=== PATIENT | male | born 1975 | race African-American/Black ===

== ENCOUNTER 2019-02-27 00:46 | Inpatient (IN) | payer OTHER ==
[2019-02-27] VITALS (13 sets, daily range): BP systolic 91–139; BP diastolic 50–84; PULSE 88–139; RESP 18–67; Ht 188 cm; Wt 91.1 kg
[~2019-02-27] VITALS: Ht 188 cm; Wt 91.1 kg
[~2019-02-27 00:46] MED LIST: CHLO25CA9 PO; FOL8 PO; PANT40TA4 PO; THIA50TA7 PO
[2019-02-27] MEDS ORDERED: ACETAMINOPHEN 325 MG TAB PO PRN ×2 (04:30→10:30)
--- NOTE | 2019-02-27 07:06 | HP ---
Date/Time of Note Date/Time of Note DATE: 02/27/19 TIME: 06:59 Assessment/Plan VTE Prophylaxis Pharmacological prophylaxis: heparin Lines/Catheters IV Catheter Type (from Nrs): Saline Lock Assessment/Plan Assessment/Plan 1. Abdominal pain and vomiting, likely secondary to alcoholic gastritis -CT at the outside facility only shows gallbladder sludge and inguinal hernia -PPI -Pain management 2. Probable hematemesis -Patient had multiple vomiting and toward the end it became slightly bloody. This could just be from retching. -Guaiac was negative at the outside facility and hemoglobin 13.3 -PPI -Given history of alcohol abuse, GI consult 3. Alcohol abuse: Monitor for withdrawal. Last drink was yesterday -IV fluid alternating with banana bag -Librium, as needed Ativan 4. Presumed acute renal insufficiency: Likely volume depletion from vomiting -IV fluid for now 5. Leukocytosis: WBC was 14 at the outside facility: -Monitor for now HPI/ROS Admit Date/Time Admit Date/Time Feb 27, 2019 at 03:01 Hx of Present Illness Patient is a 43-year-old male with a history of alcohol abuse, cirrhosis who initially presented to [facility] complaining of abdom inal pain and vomiting. Patient's last drink was yesterday. He has had multiple vomiting episodes and it toward the end of started becoming slightly bloody. He also complains of having had chest pain after he vomited multiple times. Denied a dark stool or BRBPR. He had a white count of 14,000, hemoglobin 13.3, platelet 224, INR 1. Creatinine was found to be 1.6. Liver chemistries and lipase WNL. Troponin was negative. CT shows gallbladder sludge and inguinal hernia. Guaiac at the outside facility was negative. Patient was transferred to [facility] for insurance reason. PMH/Family/Social Past Medical History Past Surgical Hx: other (see HPI) Family History Significant Family History: other (see HPI) Social History Alcohol Use: see history Smoking Status: see history Drug Use: see history Exam Constitutional: other (No acute Distress) Head: normocephalic, atraumatic Eyes: PERRL Respiratory: normal air movement Cardiovascular: nl pulses Gastrointestinal: soft Extremities: normal pulses Medications Current Medications Acetaminophen (Tylenol Tab) 650 mg Q6H PRN PO MILD PAIN(1-3)OR ELEVATED TEMP Last administered on 02/27/19at 05:09; Admin Dose 650 MG; Start 02/27/19 at 04:30 Coded Allergies: No Known Allergy (Unverified , 02/27/19) pt verbalixed Social History Smoking Status: Former smoker Exam/Review of Systems Vital Signs Vitals Vital Signs Date Temp Pulse Resp B/P (MAP) Pulse Ox O2 O2 Flow FiO2 Time Delivery Rate 02/27/19 99.8 05:54 02/27/19 120 20 134/81 95 Room Air 03:22 (98) MITCHEL GONZALEZ MD Feb 27, 2019 07:06
--- NOTE | 2019-02-27 10:17 | PN ---
Date/Time of Note Date/Time of Note DATE: 02/27/19 TIME: 10:17 Assessment/Plan VTE Prophylaxis SCD applied (from Nsg): Yes Pharmacological prophylaxis: NA/contraindicated Pharm contraindication: liver dx Lines/Catheters IV Catheter Type (from Nrsg): Saline Lock Assessment/Plan Hospital Course SUBJECTIVE: Lying in bed, disoriented to place, time and situation. Tremulous. OBJECTIVE: Vital signs-see below PHYSICAL EXAM: Constitutional: Disheveled male, who is tremulous, having low-grade fevers HEENT: Head atraumatic and normocephalic. Eyes: Extraocular muscles intact. Anicteric sclerae. Pupils equal bilaterally, reactive to light. NECK: Supple without lymph node. CHEST: Clear and good breath sounds equally. No wheezing. No rhonchi. HEART: S1, S2. Regular rate and rhythm. ABDOMEN: Soft/non tender with no rebound tenderness. Bowel sounds were present. EXTREMITIES: No cyanosis, clubbing or edema. NEUROLOGIC: Alert to self, disoriented to time/place/situation. Tremulous. No focal deficit. No sensory deficit. PSYCHOSOCIAL: No signs of depression. INTEGUMENTARY: No open wounds. ASSESSMENT AND PLAN: 43-year-old male with alcoholism, liver failure, homelessness, transferred from [facility] where he was brought by paramedics with nausea and multiple episodes of vomiting which then became somewhat blood-tinged with abdominal pain.... Abd pain/N/Vomiting, improved -Question hematemesis, noted patient received 325 mg aspirin Enroute.. -GI consult for EGD evaluation to rule out esophageal varices vs acute alcoholic gastritis. -Empiric PPI -N.p.o., IV fluids Alcohol withdrawal syndrome -Banana bag, IV fluids, Librium/Ativan tapering doses -Cessation advised -SW assistance SIRS (leukocytosis+fevers) -Reactive versus infectious. Outside CT negative for any acute intra-abdominal inflammation.UA clear. - obtain cultures and treat accordingly. Acute kidney injury, CR=1.6 ([facility] records) -IV fluids, monitor renal function. 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 Follow-up GI recommendations. Patient was seen in collaboration with Dr. Dewitt. Results 24hrs Laboratory Tests Test 02/27/19 04:45 Urine Color YELLOW Urine Clarity CLEAR Urine pH 5.0 Urine Specific [place] 1.018 Urine Ketones NEGATIVE Urine Nitrite NEGATIVE Urine Bilirubin NEGATIVE Urine Urobilinogen NEGATIVE Urine Leukocyte Esterase NEGATIVE Urine Microscopic RBC 1 Urine Microscopic WBC 0 Urine Hemoglobin 1+ H Urine Glucose NEGATIVE Urine Total Protein 2+ H Exam/Review of Systems Exam Vitals Vital Signs Date Temp Pulse Resp B/P (MAP) Pulse Ox O2 O2 Flow FiO2 Time Delivery Rate 02/27/19 100.4 104 20 132/68 94 Room Air 07:36 (89) Results Results 24hrs Laboratory Tests Test 02/27/19 04:45 Urine Color YELLOW Urine Clarity CLEAR Urine pH 5.0 Urine Specific [place] 1.018 Urine Ketones NEGATIVE Urine Nitrite NEGATIVE Urine Bilirubin NEGATIVE Urine Urobilinogen NEGATIVE Urine Leukocyte Esterase NEGATIVE Urine Microscopic RBC 1 Urine Microscopic WBC 0 Urine Hemoglobin 1+ H Urine Glucose NEGATIVE Urine Total Protein 2+ H Medications Medication Current Medications Acetaminophen (Tylenol Tab) 650 mg Q6H PRN PO MILD PAIN(1-3)OR ELEVATED TEMP Last administered on 02/27/19at 05:09; Admin Dose 650 MG; Start 02/27/19 at 04:30 JASPER MENSAH NP Feb 27, 2019 10:17
[2019-02-27] MEDS ORDERED: NACL 0.9% 3 ML SYG IV SCH (10:30)
[2019-02-27] MEDS ORDERED: LORAZEPAM 2 MG INJ IV PRN (10:30)
[2019-02-27] MEDS ORDERED: ONDANSETRON 4 MG INJ IV PRN (10:30)
[2019-02-27] MEDS: SOD CHLORIDE 0.9% 1,000 ML IV SCH ×2 (11:11→19:10)
[2019-02-27] MEDS: MULTIVITAMINS 10 ML, THIAMINE 100 MG, FOLIC ACID 1 MG in SOD CHLORIDE 0.9% 1,000 ML IVPB SCH (11:54)
[2019-02-27] MEDS: PANTOPRAZOLE IV 80 MG in SOD CHLORIDE 0.9% 100 ML IV SCH ×2 (11:55→21:13)
[2019-02-27] MEDS: CHLORDIAZEPOXIDE 25 MG CAP PO SCH ×2 (12:25→21:10)
--- NOTE | 2019-02-27 14:36 | CONS ---
Assessment/Plan Assessment/Plan Hospital Course (Demo Recall) Summary Assessment and Plan: Assessment: Epigastric pain with reported hematemesis -Sabrina-Richardson tear versus hemorrhagic gastritis versus other Alcohol abuse, last drink 2 days ago Transaminitis, mild (AST>ALT)- DF based on outside labs- less than 32- therefore methylprednisolone therapy is not indicated Leukocytosis Hepatic steatosis - on outside imaging HTN History of schizophrenia Plan: Continue PPI gtt Monitor labs EGD today CBC, CMP, INR in am Endoscopy - risks/benefits/alternatives/indications of procedure and s edation/anesthesia discussed with patient who states understanding and gives informed consent to proceed. Treat alcoholic withdrawal symptoms Patient seen in collaboration with Dr. Torres CC: CLAIRE TORRES MD ; Consultation Date/Type/Reason Admit Date/Time Feb 27, 2019 at 03:01 Date of Consultation: Feb 27, 2019 Type of Consult GI Reason for Consultation Epigastric pain Reported hematemesis Date/Time of Note DATE: 02/27/19 TIME: 14:01 Hx of Present Illness This is a 43-year-old male with past medical history of alcohol abuse drinking 5 to 6 24-ounce beers per day since the age of 21, schizophrenia, hypertension presented to an outside facility with complaints of epigastric pain and persistent nausea and vomiting with subsequent hematemesis reported chest pain outside facility chest x-ray was completed showing no acute disease found. Additionally a CT abdomen pelvis without contrast shows hepatic steatosis, distended gallbladder containing dense material. Consider sludge. No definitive cholelithiasis or cholecystitis. Pancreas and kidneys are unremarkable. No obstructive uropathy. No appendicitis, colitis, diverticulitis, or bowel obstruction. No free air or free fluid. Small fat- containing inguinal hernias. Overall no acute or inflammatory disease or bowel obstruction. Additionally labs were obtained WBC revealed 14.0, hemoglobin 13.3, hematocrit 38.9, MCV 94.3, MCH 32.3, platelet 224, INR 1.0, BUN is 11, creatinine is 1.6, and troponin is less than 0.02. It was transferred to [facility] for insurance reasons. At time evaluation patient continues tingling of epigastric pain no further episodes of hematemesis noted no melena noted review is guaiac was negative. Patient states he has never had an upper endoscopy he does complain of epigastric pain worse with palpation he is currently n.p.o. states he has been so for the past 2 days. Additionally his last alcoholic beverage was 2 days ago. Review of Systems: A 12 system, review was conducted and is negative except as noted in the HPI or here. Past Medical History Medications Current Medications Sodium Chloride 1,000 ml @ 125 mls/hr Q8H IV Last administered on 02/27/19at 11:11; Admin Dose 125 MLS/HR; Start 02/27/19 at 10:17 IV Flush (NS 3 ml) 3 ml PER PROTOCOL IV ; Start 02/27/19 at 10:30 Ondansetron HCl (Zofran Inj) 4 mg Q6H PRN IV NAUSEA/VOMITING; Start 02/27/19 at 10:30 Acetaminophen (Tylenol Tab) 650 mg Q8H PRN PO .PAIN 1-3 OR TEMP; Start 02/27/19 at 10:30 Pantoprazole 80 mg/Sodium Chloride 100 ml @ 10 mls/hr Q10H IV Last administered on 02/27/19at 11:55; Admin Dose 10 MLS/HR; Start 02/27/19 at 12:00 Chlordiazepoxide (Librium) 75 mg TID PO Last administered on 02/27/19at 12:25; Admin Dose 75 MG; Start 02/27/19 at 13:00 Lorazepam (Ativan) 1 mg Q2H PRN IV etoh seizures/agitation; Start 02/27/19 at 10:30 Multivitamins 10 ml/Thiamine HCl 100 mg/Folic Acid 1 mg/Sodium Chloride 1,011.2 ml @ 125 mls/ hr DAILY@09 IVPB Last administered on 02/27/19at 11:54; Admin Dose 125 MLS/HR; Start 02/27/19 at 12:00 Allergies: Coded Allergies: No Known Allergy (Unverified , 02/27/19) pt verbalixed Social History Smoking Status: Former smoker Exam/Review of Systems Exam Vitals Vital Signs Date Temp Pulse Resp B/P (MAP) Pulse Ox O2 O2 Flow FiO2 Time Delivery Rate 02/27/19 100.1 103 20 121/67 97 Room Air 11:04 (85) Exam PHYSICAL EXAMINATION: GENERAL: Alert & oriented x 3, facial edema SKIN: No lesions HEAD: Normocephalic, atraumatic, no tenderness. EYES: Pupils equal reactive to light and accommodation, no discharge. EARS/NOSE AND THROAT: Ears normal, nose normal, oropharynx normal, oral membranes well hydrated without lesions. NECK: Supple, no masses, thyroid normal, JVP within normal limits, carotids normal without bruits. CHEST: Inspection within normal limits. CARDIOVASCULAR: Heart: Regular rate and rhythm, RESPIRATORY: Diminished GASTROINTESTINAL AND LIVER: Abdomen: Soft, non tenderness, non-distended, no hernias, no masses, no organomegaly, no ascites, no guarding, no rebound tenderness, normoactive bowel sounds. Rectal: Deferred. Results Results 24hrs Laboratory Tests Test 02/27/19 04:45 Urine Color YELLOW Urine Clarity CLEAR Urine pH 5.0 Urine Specific [place] 1.018 Urine Ketones NEGATIVE Urine Nitrite NEGATIVE Urine Bilirubin NEGATIVE Urine Urobilinogen NEGATIVE Urine Leukocyte Esterase NEGATIVE Urine Microscopic RBC 1 Urine Microscopic WBC 0 Urine Hemoglobin 1+ H Urine Glucose NEGATIVE Urine Total Protein 2+ H Medications Medication Current Medications Sodium Chloride 1,000 ml @ 125 mls/hr Q8H IV Last administered on 02/27/19at 11:11; Admin Dose 125 MLS/HR; Start 02/27/19 at 10:17 IV Flush (NS 3 ml) 3 ml PER PROTOCOL IV ; Start 02/27/19 at 10:30 Ondansetron HCl (Zofran Inj) 4 mg Q6H PRN IV NAUSEA/VOMITING; Start 02/27/19 at 10:30 Acetaminophen (Tylenol Tab) 650 mg Q8H PRN PO .PAIN 1-3 OR TEMP; Start 02/27/19 at 10:30 Pantoprazole 80 mg/Sodium Chloride 100 ml @ 10 mls/hr Q10H IV Last administered on 02/27/19at 11:55; Admin Dose 10 MLS/HR; Start 02/27/19 at 12:00 Chlordiazepoxide (Librium) 75 mg TID PO Last administered on 02/27/19at 12:25; Admin Dose 75 MG; Start 02/27/19 at 13:00 Lorazepam (Ativan) 1 mg Q2H PRN IV etoh seizures/agitation; Start 02/27/19 at 10 :30 Multivitamins 10 ml/Thiamine HCl 100 mg/Folic Acid 1 mg/Sodium Chloride 1,011.2 ml @ 125 mls/ hr DAILY@09 IVPB Last administered on 02/27/19at 11:54; Admin Dose 125 MLS/HR; Start 02/27/19 at 12:00 JEISON BLANDON Feb 27, 2019 14:13
[2019-02-27] MEDS ORDERED: LIDOCAINE 2% (SDV) 5 ML INJ ONE (15:29)
[2019-02-27] MEDS ORDERED: PROPOFOL 40 ML ONE (15:29)
--- NOTE | 2019-02-27 15:34 | PREAC ---
Date/Time of Note Date/Time of Note DATE: 02/27/19 TIME: 15:32 Anesthesia Eval and Record Evaluation Time Pre-Procedure Interview DATE: 02/27/19 TIME: 15:32 Age 43 Sex male NPO: 8 hrs Preoperative diagnosis Upper GI bleed Planned procedure EGD Past Medical History Past Medical History: Includes GI: Morbid obesity Heme: Anemia Surgery & Anesthesia Issues No known issue Meds Anticoagulation: No Beta Erica within 24 hr: No Reason Beta Erica not given: Pt. not on B-Erica Current Medications Sodium Chloride 1,000 ml @ 125 mls/hr Q8H IV Last administered on 02/27/19at 11:11; Admin Dose 125 MLS/HR; Start 02/27/19 at 10:17 IV Flush (NS 3 ml) 3 ml PER PROTOCOL IV ; Start 02/27/19 at 10:30 Ondansetron HCl (Zofran Inj) 4 mg Q6H PRN IV NAUSEA/VOMITING; Start 02/27/19 at 10:30 Acetaminophen (Tylenol Tab) 650 mg Q8H PRN PO .PAIN 1-3 OR TEMP; Start 02/27/19 at 10:30 Pantoprazole 80 mg/Sodium Chloride 100 ml @ 10 mls/hr Q10H IV Last administered on 02/27/19at 11:55; Admin Dose 10 MLS/HR; Start 02/27/19 at 12:00 Chlordiazepoxide (Librium) 75 mg TID PO Last administered on 02/27/19at 12:25; Admin Dose 75 MG; Start 02/27/19 at 13:00 Lorazepam (Ativan) 1 mg Q2H PRN IV etoh seizures/agitation; Start 02/27/19 at 10:30 Multivitamins 10 ml/Thiamine HCl 100 mg/Folic Acid 1 mg/Sodium Chloride 1,011.2 ml @ 125 mls/ hr DAILY@09 IVPB Last administered on 02/27/19at 11:54; Admin Dose 125 MLS/HR; Start 02/27/19 at 12:00 Meds reviewed: Yes Allergies Coded Allergies: No Known Allergy (Unverified , 02/27/19) pt verbalixed Allergies Reviewed: Yes Labs/Studies Labs Reviewed: Reviewed by anesthesiologist test: N/A Studies: ECG Pre-procedure Exam Last vitals Vital Signs Date Temp Pulse Resp B/P (MAP) Pulse Ox O2 O2 Flow FiO2 Time Delivery Rate 02/27/19 98.5 94 20 118/66 96 Room Air 14:45 (83) Airway: Adequate mouth opening, Adequate thyromental dist Mallampati: Mallampati III Teeth: Normal Lung: Normal Heart: Normal ASA Physical Status ASA physical status: 3 Emergency: None Planned Anesthetic General/MAC: MAC Planned Pain Management Parenteral pain med Pre-operative Attestations Prior to commencing anesthesia and surgery, the patient was re-evaluated, there was verification of: *The patient's identity *The results of appropriate recent lab work and preoperative vital signs *The above evaluation not changing prior to induction *Anesthetic plan, risk benefits, alternative and complications discussed with patient/family; questions answered; patient/family understands, accepts and wishes to proceed. PEDRO NIELSON MD Feb 27, 2019 15:34
--- NOTE | 2019-02-27 16:07 | PAC ---
Date/Time of Note Date/Time of Note DATE: 02/27/19 TIME: 16:07 Post-Anesthesia Notes Post-Anesthesia Note Last documented vital signs Vital Signs Date Temp Pulse Resp B/P (MAP) Pulse Ox O2 O2 Flow FiO2 Time Delivery Rate 02/27/19 98.5 94 20 118/66 96 Room Air 14:45 (83) Activity: WNL Respiratory function: WNL Cardiovascular function: WNL Mental status: Baseline Pain reasonably controlled: Yes Hydration appropriate: Yes Nausea/Vomiting absent: Yes Comments BP:112/67, P:78, Spo2:100%, T:98,8 PEDRO NIELSON MD Feb 27, 2019 16:07
[2019-02-28] VITALS (7 sets, daily range): BP systolic 117–154; BP diastolic 61–87; PULSE 79–94; RESP 18–19
[2019-02-28] MEDS: SOD CHLORIDE 0.9% 1,000 ML IV SCH ×3 (01:56→18:17)
[2019-02-28] MEDS: CHLORDIAZEPOXIDE 25 MG CAP PO SCH ×3 (09:15→21:23)
[2019-02-28] MEDS: MULTIVITAMINS 10 ML, THIAMINE 100 MG, FOLIC ACID 1 MG in SOD CHLORIDE 0.9% 1,000 ML IVPB SCH (09:20)
[2019-02-28] MEDS: PANTOPRAZOLE IV 80 MG in SOD CHLORIDE 0.9% 100 ML IV SCH (09:21)
--- NOTE | 2019-02-28 12:15 | PN ---
Date/Time of Note Date/Time of Note DATE: 02/28/19 TIME: 12:08 Assessment/Plan VTE Prophylaxis Risk score (from Nsg)>0 risk: 2 SCD applied (from Ns): No SCD contraindicated: low risk/ambulating Pharmacological prophylaxis: NA/contraindicated Pharm contraindication: bleeding Lines/Catheters IV [facility]ter [facility] (from [facility]): Peripheral IV Assessment/Plan Hospital Course Summary Assessment and Plan: Assessment: Epigastric pain with reported hematemesis -Sabrina-Richardson tear versus hemorrhagic gastritis versus other EGD 02/27/2019 Grade D esophagitis Erosive antral gastropathy Duodenitis Alcohol abuse, last drink 2 days ago Transaminitis, mild (AST>ALT)- DF based on outside labs- less than 32- therefore methylprednisolone therapy is not indicated Leukocytosis Hepatic steatosis - on outside imaging HTN History of schizophrenia Plan: PPI 40 mg p.o. twice daily x8 weeks Abstain from alcohol Avoid NSAIDs Repeat EGD in 8 weeks to check healing Follow-up on pathology Advance diet as tolerated D/c planning per hospitalist Patient seen in collaboration with Dr. Torres Subjective: Course reviewed with nursing staff Patient interviewed and examined All labs, imaging and other results reviewed The patient sitting up in bed, states he feels better today started cl liq diet- no c/o n/v - no overt signs of GI bleed Exam PHYSICAL EXAMINATION: GENERAL: Alert & oriented x 3, facial edema SKIN: No lesions HEAD: Normocephalic, atraumatic, no tenderness. EYES: Pupils equal reactive to light and accommodation, no discharge. EARS/NOSE AND THROAT: Ears normal, nose normal, oropharynx normal, oral membranes well hydrated without lesions. NECK: Supple, no masses, thyroid normal, JVP within normal limits, carotids normal without bruits. CHEST: Inspection within normal limits. CARDIOVASCULAR: Heart: Regular rate and rhythm, RESPIRATORY: Diminished GASTROINTESTINAL AND LIVER: Abdomen: Soft, non tenderness, non-distended, no hernias, no masses, no organomegaly, no ascites, no guarding, no rebound tenderness, normoactive bowel sounds. Rectal: Deferred. Result Diagram: 02/28/19 0616 02/28/19 0616 Results 24hrs Laboratory Tests Test 02/27/19 15:00 02/28/19 06:09 02/28/19 06:16 Prothrombin Time 13.5 Prothrombin Time Ratio 1.1 INR International Normalized Ratio 1.02 Hemoglobin A1c 5.2 White Blood Count 7.7 Red Blood Count 3.37 L Hemoglobin 10.5 L Hematocrit 31.7 L Mean Corpuscular Volume 94.1 Mean Corpuscular Hemoglobin 31.2 Mean Corpuscular Hemoglobin Concent 33.1 Red Cell Distribution Width 12.5 Platelet Count 147 Mean Platelet Volume 11.2 H Immature Granulocytes % 0.400 Neutrophils % 75.6 Lymphocytes % 18.0 Monocytes % 4.8 Eosinophils % 0.9 Basophils % 0.3 Nucleated Red Blood Cells % 0.0 Immature Granulocytes # 0.030 Neutrophils # 5.9 Lymphocytes # 1.4 Monocytes # 0.4 Eosinophils # 0.1 Basophils # 0.0 Nucleated Red Blood Cells # 0.0 Sodium Level 138 Potassium Level 3.4 L Chloride Level 106 Carbon Dioxide Level 25 Anion Gap 7 Blood Urea Nitrogen 11 Creatinine 1.09 Est Glomerular Filtrat Rate mL/min > 60 Glucose Level 84 Calcium Level 8.6 Phosphorus Level 3.2 Magnesium Level 1.6 L Total Bilirubin 0.6 Direct Bilirubin 0.00 Indirect Bilirubin 0.6 Aspartate Amino Transf (AST/SGOT) 44 Alanine Aminotransferase (ALT/SGPT) 34 Alkaline Phosphatase 39 L Total Protein 6.3 Albumin 3.1 L Globulin 3.20 Albumin/Globulin Ratio 0.96 Triglycerides Level 226 H Cholesterol Level 215 H LDL Cholesterol, Calculated 121 HDL Cholesterol 49 Cholesterol/HDL Ratio 4.3 Exam/Review of Systems Exam Vitals Vital Signs Date Temp Pulse Resp B/P (MAP) Pulse Ox O2 O2 Flow FiO2 Time Delivery Rate 02/28/19 98.6 94 19 130/67 96 Room Air 11:05 (88) 02/27/19 8.0 16:11 Intake and Output 02/27/19 02/27/19 02/28/19 1515:00 23:00 07:00 IntakeIntake Total 0 ml BalanceBalance 0 ml Results Results 24hrs Laboratory Tests Test 02/27/19 15:00 02/28/19 06:09 02/28/19 06:16 Prothrombin Time 13.5 Prothrombin Time Ratio 1.1 INR International Normalized Ratio 1.02 Hemoglobin A1c 5.2 White Blood Count 7.7 Red Blood Count 3.37 L Hemoglobin 10.5 L Hematocrit 31.7 L Mean Corpuscular Volume 94.1 Mean Corpuscular Hemoglobin 31.2 Mean Corpuscular Hemoglobin Concent 33.1 Red Cell Distribution Width 12.5 Platelet Count 147 Mean Platelet Volume 11.2 H Immature Granulocytes % 0.400 Neutrophils % 75.6 Lymphocytes % 18.0 Monocytes % 4.8 Eosinophils % 0.9 Basophils % 0.3 Nucleated Red Blood Cells % 0.0 Immature Granulocytes # 0.030 Neutrophils # 5.9 Lymphocytes # 1.4 Monocytes # 0.4 Eosinophils # 0.1 Basophils # 0.0 Nucleated Red Blood Cells # 0.0 Sodium Level 138 Potassium Level 3.4 L Chloride Level 106 Carbon Dioxide Level 25 Anion Gap 7 Blood Urea Nitrogen 11 Creatinine 1.09 Est Glomerular Filtrat Rate mL/min > 60 Glucose Level 84 Calcium Level 8.6 Phosphorus Level 3.2 Magnesium Level 1.6 L Total Bilirubin 0.6 Direct Bilirubin 0.00 Indirect Bilirubin 0.6 Aspartate Amino Transf (AST/SGOT) 44 Alanine Aminotransferase (ALT/SGPT) 34 Alkaline Phosphatase 39 L Total Protein 6.3 Albumin 3.1 L Globulin 3.20 Albumin/Globulin Ratio 0.96 Triglycerides Level 226 H Cholesterol Level 215 H LDL Cholesterol, Calculated 121 HDL Cholesterol 49 Cholesterol/HDL Ratio 4.3 Medications Medication Current Medications Sodium Chloride 1,000 ml @ 125 mls/hr Q8H IV Last administered on 02/28/19at 01:56; Admin Dose 125 MLS/HR; Start 02/27/19 at 10:17 IV Flush (NS 3 ml) 3 ml PER PROTOCOL IV ; Start 02/27/19 at 10:30 Ondansetron HCl (Zofran Inj) 4 mg Q6H PRN IV NAUSEA/VOMITING; Start 02/27/19 at 10:30 Acetaminophen (Tylenol Tab) 650 mg Q8H PRN PO .PAIN 1-3 OR TEMP; Start 02/27/19 at 10:30 Pantoprazole 80 mg/Sodium Chloride 100 ml @ 10 mls/hr Q10H IV Last administered on 02/28/19at 09:21; Admin Dose 10 MLS/HR; Start 02/27/19 at 12:00 Chlordiazepoxide (Librium) 75 mg TID PO Last administered on 02/28/19at 09:15; Admin Dose 75 MG; Start 02/27/19 at 13:00 Lorazepam (Ativan) 1 mg Q2H PRN IV etoh seizures/agitation; Start 02/27/19 at 10:30 Multivitamins 10 ml/Thiamine HCl 100 mg/Folic Acid 1 mg/Sodium Chloride 1,011.2 ml @ 125 mls/ hr DAILY@09 IVPB Last administered on 02/28/19at 09:20; Admin Dose 125 MLS/HR; Start 02/27/19 at 12:00 JEISON BLANDON Feb 28, 2019 12:15
[2019-02-28] MEDS ORDERED: POTASSIUM CHLORIDE (SR) 20 MEQ TAB PO STA (12:39)
--- NOTE | 2019-02-28 12:40 | PN ---
Date/Time of Note Date/Time of Note DATE: 02/28/19 TIME: 12:37 Assessment/Plan VTE Prophylaxis Risk score (from Ns)>0 risk: 2 SCD applied (from Ns): No SCD contraindicated: other Pharmacological prophylaxis: NA/contraindicated Pharm contraindication: low risk/ambulating Lines/Catheters IV [facility]from [facility] Peripheral IV Assessment/Plan Hospital Course SUBJECTIVE: No further tremors. No nausea or vomiting or diarrhea. No further bleeding signs. Currently sleeping. Tolerating diet. OBJECTIVE: Vital signs-see below PHYSICAL EXAM: Constitutional: Disheveled male, who is tremulous, having low-grade fevers HEENT: Head atraumatic and normocephalic. Eyes: Extraocular muscles intact. Anicteric sclerae. Pupils equal bilaterally, reactive to light. NECK: Supple without lymph node. CHEST: Clear and good breath sounds equally. No wheezing. No rhonchi. HEART: S1, S2. Regular rate and rhythm. ABDOMEN: Soft/non tender with no rebound tenderness. Bowel sounds were present. EXTREMITIES: No cyanosis, clubbing or edema. NEUROLOGIC: Alert to self, disoriented to time/place/situation. Tremulous. No focal deficit. No sensory deficit. PSYCHOSOCIAL: No signs of depression. INTEGUMENTARY: No open wounds. ASSESSMENT AND PLAN: 43-year-old male with alcoholism, liver failure, homelessness, transferred from [facility] where he was brought by paramedics with nausea and multiple episodes of vomiting which then became somewhat blood-tinged with abdominal pain.... Abd pain/N/Vomiting, likely EtOH induced. -Resolved. -Status post EGD 02/27/2019 Grade D esophagitis Erosive antral gastropathy Duodenitis -Continue PPI. Advance diet as tolerated. Alcohol withdrawal syndrome -Symptoms improved. -Banana bag, IV fluids, Librium/Ativan tapering doses -Cessation advised -SW assistance SIRS (leukocytosis+fevers), likely reactive -Resolved. Acute kidney injury, CR=1.6 (osh records) -Resolved. Alcoholic liver cirrhosis -LFTs from OSH noted -Continue monitoring Homelessness -As per social sciences research scientist, patient is planning to return to his mother's house. DVT prophylaxis: SCDs PUD prophylaxis: PPI Disposition: Taper Librium. Diet as tolerated. DC planning in a.m. with outpatient follow-up. Patient plans to go back to his mother's house. Patient was seen in collaboration with Dr. Dewitt. Result Diagram: 02/28/19 0616 02/28/19 0616 Results 24hrs Laboratory Tests Test 02/27/19 15:00 02/28/19 06:09 02/28/19 06:16 Prothrombin Time 13.5 Prothrombin Time Ratio 1.1 INR International Normalized Ratio 1.02 Hemoglobin A1c 5.2 White Blood Count 7.7 Red Blood Count 3.37 L Hemoglobin 10.5 L Hematocrit 31.7 L Mean Corpuscular Volume 94.1 Mean Corpuscular Hemoglobin 31.2 Mean Corpuscular Hemoglobin Concent 33.1 Red Cell Distribution Width 12.5 Platelet Count 147 Mean Platelet Volume 11.2 H Immature Granulocytes % 0.400 Neutrophils % 75.6 Lymphocytes % 18.0 Monocytes % 4.8 Eosinophils % 0.9 Basophils % 0.3 Nucleated Red Blood Cells % 0.0 Immature Granulocytes # 0.030 Neutrophils # 5.9 Lymphocytes # 1.4 Monocytes # 0.4 Eosinophils # 0.1 Basophils # 0.0 Nucleated Red Blood Cells # 0.0 Sodium Level 138 Potassium Level 3.4 L Chloride Level 106 Carbon Dioxide Level 25 Anion Gap 7 Blood Urea Nitrogen 11 Creatinine 1.09 Est Glomerular Filtrat Rate mL/min > 60 Glucose Level 84 Calcium Level 8.6 Phosphorus Level 3.2 Magnesium Level 1.6 L Total Bilirubin 0.6 Direct Bilirubin 0.00 Indirect Bilirubin 0.6 Aspartate Amino Transf (AST/SGOT) 44 Alanine Aminotransferase (ALT/SGPT) 34 Alkaline Phosphatase 39 L Total Protein 6.3 Albumin 3.1 L Globulin 3.20 Albumin/Globulin Ratio 0.96 Triglycerides Level 226 H Cholesterol Level 215 H LDL Cholesterol, Calculated 121 HDL Cholesterol 49 Cholesterol/HDL Ratio 4.3 Exam/Review of Systems Exam Vitals Vital Signs Date Temp Pulse Resp B/P (MAP) Pulse Ox O2 O2 Flow FiO2 Time Delivery Rate 02/28/19 98.6 94 19 130/67 96 Room Air 11:05 (88) 02/27/19 8.0 16:11 Intake and Output 02/27/19 02/27/19 02/28/19 1515:00 23:00 07:00 IntakeIntake Total 0 ml BalanceBalance 0 ml Results Results 24hrs Laboratory Tests Test 02/27/19 15:00 02/28/19 06:09 02/28/19 06:16 Prothrombin Time 13.5 Prothrombin Time Ratio 1.1 INR International Normalized Ratio 1.02 Hemoglobin A1c 5.2 White Blood Count 7.7 Red Blood Count 3.37 L Hemoglobin 10.5 L Hematocrit 31.7 L Mean Corpuscular Volume 94.1 Mean Corpuscular Hemoglobin 31.2 Mean Corpuscular Hemoglobin Concent 33.1 Red Cell Distribution Width 12.5 Platelet Count 147 Mean Platelet Volume 11.2 H Immature Granulocytes % 0.400 Neutrophils % 75.6 Lymphocytes % 18.0 Monocytes % 4.8 Eosinophils % 0.9 Basophils % 0.3 Nucleated Red Blood Cells % 0.0 Immature Granulocytes # 0.030 Neutrophils # 5.9 Lymphocytes # 1.4 Monocytes # 0.4 Eosinophils # 0.1 Basophils # 0.0 Nucleated Red Blood Cells # 0.0 Sodium Level 138 Potassium Level 3.4 L Chloride Level 106 Carbon Dioxide Level 25 Anion Gap 7 Blood Urea Nitrogen 11 Creatinine 1.09 Est Glomerular Filtrat Rate mL/min > 60 Glucose Level 84 Calcium Level 8.6 Phosphorus Level 3.2 Magnesium Level 1.6 L Total Bilirubin 0.6 Direct Bilirubin 0.00 Indirect Bilirubin 0.6 Aspartate Amino Transf (AST/SGOT) 44 Alanine Aminotransferase (ALT/SGPT) 34 Alkaline Phosphatase 39 L Total Protein 6.3 Albumin 3.1 L Globulin 3.20 Albumin/Globulin Ratio 0.96 Triglycerides Level 226 H Cholesterol Level 215 H LDL Cholesterol, Calculated 121 HDL Cholesterol 49 Cholesterol/HDL Ratio 4.3 Medications Medication Current Medications Sodium Chloride 1,000 ml @ 125 mls/hr Q8H IV Last administered on 02/28/19at 01:56; Admin Dose 125 MLS/HR; Start 02/27/19 at 10:17 IV Flush (NS 3 ml) 3 ml PER PROTOCOL IV ; Start 02/27/19 at 10:30 Ondansetron HCl (Zofran Inj) 4 mg Q6H PRN IV NAUSEA/VOMITING; Start 02/27/19 at 10:30 Acetaminophen (Tylenol Tab) 650 mg Q8H PRN PO .PAIN 1-3 OR TEMP; Start 02/27/19 at 10:30 Chlordiazepoxide (Librium) 75 mg TID PO Last administered on 02/28/19at 09:15; Admin Dose 75 MG; Start 02/27/19 at 13:00 Lorazepam (Ativan) 1 mg Q2H PRN IV etoh seizures/agitation; Start 02/27/19 at 10:30 Multivitamins 10 ml/Thiamine HCl 100 mg/Folic Acid 1 mg/Sodium Chloride 1,011.2 ml @ 125 mls/ hr DAILY@09 IVPB Last administered on 02/28/19at 09:20; Admin Dose 125 MLS/HR; Start 02/27/19 at 12:00 Pantoprazole (Protonix Tab) 40 mg BID@06,18 PO ; Start 02/28/19 at 18:00 JASPER MENSAH NP Feb 28, 2019 12:39
[2019-02-28] MEDS ORDERED: MAGNESIUM SULFATE 2 GM/50 ML 50 ML IVPB ONE (13:00)
[2019-02-28] MEDS: PANTOPRAZOLE (EC) 40 MG TAB PO SCH (19:26)
[2019-03-01] MEDS: SOD CHLORIDE 0.9% 1,000 ML IV SCH ×2 (01:55→09:55)
[2019-03-01 04:00] VITALS: BP 141/82; RESP 18
[2019-03-01] MEDS: PANTOPRAZOLE (EC) 40 MG TAB PO SCH (05:42)
[2019-03-01 07:16] VITALS: BP 155/69; PULSE 77; RESP 18
--- NOTE | 2019-03-01 09:36 | PN ---
Date/Time of Note Date/Time of Note DATE: 03/01/19 TIME: 09:34 Assessment/Plan VTE Prophylaxis Risk score (from Nsg)>0 risk: 2 SCD applied (from Ns): No SCD contraindicated: low risk/ambulating Pharmacological prophylaxis: NA/contraindicated Pharm contraindication: low risk/ambulating Lines/Catheters IV Catheter Type (from Nrs): Peripheral IV Assessment/Plan Hospital Course Summary Assessment and Plan: Assessment: Epigastric pain with reported hematemesis -Sabrina-Richardson tear versus hemorrhagic gastritis versus other EGD 02/27/2019 Grade D esophagitis Erosive antral gastropathy Duodenitis Alcohol abuse, last drink 2 days ago Transaminitis, mild (AST>ALT)- DF based on outside labs- less than 32- therefore methylprednisolone therapy is not indicated Leukocytosis Hepatic steatosis - on outside imaging HTN History of schizophrenia Plan: PPI 40 mg p.o. twice daily x8 weeks Abstain from alcohol Avoid NSAIDs Repeat EGD in 8 weeks to check healing Follow-up on pathology 2gm NA, low Cholesterol diet D/c planning per hospitalist - if able to tolerate po intake- ok for out-pt management from GI point of view Patient seen in collaboration with Dr. Torres Subjective: Course reviewed with nursing staff Patient interviewed and examined All labs, imaging and other results reviewed No over night events, pt isha cl liquid diet well. No c/o n/v or abd pain. Discussed plan for pt to f/u with GI after d/c for repeat EGD- pt verbalized understanding Exam PHYSICAL EXAMINATION: GENERAL: Alert & oriented x 3, facial edema- improved SKIN: No lesions HEAD: Normocephalic, atraumatic, no tenderness. EYES: Pupils equal reactive to light and accommodation, no discharge. EARS/NOSE AND THROAT: Ears normal, nose normal, oropharynx normal, oral membranes well hydrated without lesions. NECK: Supple, no masses, CHEST: Inspection within normal limits. CARDIOVASCULAR: Heart: Regular rate and rhythm, RESPIRATORY: Diminished GASTROINTESTINAL AND LIVER: Abdomen: Soft, non tenderness, non-distended, no hernias, no masses, no organomegaly, no ascites, no guarding, no rebound tenderness, normoactive bowel sounds. Rectal: Deferred. Result Diagram: 03/01/19 0602 02/28/19 0616 Results 24hrs Laboratory Tests Test 03/01/19 06:02 White Blood Count 7.0 Red Blood Count 3.36 L Hemoglobin 10.9 L Hematocrit 30.7 L Mean Corpuscular Volume 91.4 Mean Corpuscular Hemoglobin 32.4 Mean Corpuscular Hemoglobin Concent 35.5 Red Cell Distribution Width 11.9 Platelet Count 151 Mean Platelet Volume 11.4 H Immature Granulocytes % 0.400 Neutrophils % 70.5 Lymphocytes % 20.0 Monocytes % 6.8 Eosinophils % 2.0 Basophils % 0.3 Nucleated Red Blood Cells % 0.0 Immature Granulocytes # 0.030 Neutrophils # 5.0 Lymphocytes # 1.4 Monocytes # 0.5 Eosinophils # 0.1 Basophils # 0.0 Nucleated Red Blood Cells # 0.0 Exam/Review of Systems Exam Vitals Vital Signs Date Temp Pulse Resp B/P (MAP) Pulse Ox O2 O2 Flow FiO2 Time Delivery Rate 03/01/19 99.0 77 18 155/69 95 Room Air 07:16 (97) 02/27/19 8.0 16:11 Intake and Output 02/28/19 02/28/19 03/01/19 1515:00 23:00 07:00 IntakeIntake Total 725 ml 1250 ml 1225 ml OutputOutput Total 1 ml BalanceBalance 725 ml 1250 ml 1224 ml Results Results 24hrs Laboratory Tests Test 03/01/19 06:02 White Blood Count 7.0 Red Blood Count 3.36 L Hemoglobin 10.9 L Hematocrit 30.7 L Mean Corpuscular Volume 91.4 Mean Corpuscular Hemoglobin 32.4 Mean Corpuscular Hemoglobin Concent 35.5 Red Cell Distribution Width 11.9 Platelet Count 151 Mean Platelet Volume 11.4 H Immature Granulocytes % 0.400 Neutrophils % 70.5 Lymphocytes % 20.0 Monocytes % 6.8 Eosinophils % 2.0 Basophils % 0.3 Nucleated Red Blood Cells % 0.0 Immature Granulocytes # 0.030 Neutrophils # 5.0 Lymphocytes # 1.4 Monocytes # 0.5 Eosinophils # 0.1 Basophils # 0.0 Nucleated Red Blood Cells # 0.0 Medications Medication Current Medications Sodium Chloride 1,000 ml @ 125 mls/hr Q8H IV Last administered on 03/01/19at 01:55; Admin Dose 125 MLS/HR; Start 02/27/19 at 10:17 IV Flush (NS 3 ml) 3 ml PER PROTOCOL IV ; Start 02/27/19 at 10:30 Ondansetron HCl (Zofran Inj) 4 mg Q6H PRN IV NAUSEA/VOMITING; Start 02/27/19 at 10:30 Acetaminophen (Tylenol Tab) 650 mg Q8H PRN PO .PAIN 1-3 OR TEMP; Start 02/27/19 at 10:30 Lorazepam (Ativan) 1 mg Q2H PRN IV etoh seizures/agitation; Start 02/27/19 at 10:30 Multivitamins 10 ml/Thiamine HCl 100 mg/Folic Acid 1 mg/Sodium Chloride 1,011.2 ml @ 125 mls/ hr DAILY@09 IVPB Last administered on 02/28/19at 09:20; Admin Dose 125 MLS/HR; Start 02/27/19 at 12:00 Pantoprazole (Protonix Tab) 40 mg BID@06,18 PO Last administered on 03/01/19at 05:42; Admin Dose 40 MG; Start 02/28/19 at 18:00 Chlordiazepoxide (Librium) 50 mg TID PO Last administered on 02/28/19at 21:23; Admin Dose 50 MG; Start 02/28/19 at 13:00 JEISON BLANDON Mar 01, 2019 09:36
[2019-03-01] MEDS: CHLORDIAZEPOXIDE 25 MG CAP PO SCH ×2 (09:47→12:34)
[2019-03-01] MEDS: MULTIVITAMINS 10 ML, THIAMINE 100 MG, FOLIC ACID 1 MG in SOD CHLORIDE 0.9% 1,000 ML IVPB SCH (09:52)
--- NOTE | 2019-03-01 10:07 | PDOCDIS ---
Discharge Instructions CONDITION [id number] Patient Condition: [id number] Stable HOME CARE INSTRUCTIONS: [id number] Your diet recommendation is: [id number] A MEDICAL TREATMENT AT [facility] AND YOUR CONDITION IS STABLE AND CAN BE FOLLOWED UP OUTPATIENT. FURTHER FOLLOW-UPS CAN WAIT UNTIL YOU ARE SEEN IN YOUR DOCTORS OFFICE WITHIN THE NEXT 1-2 DAYS. IT IS YOUR RESPONSIBILITY TO MAKE AN APPOINTMENT FOR FOLOW-UP CARE. IF YOU HAVE A PRIMARY DOCTOR --you should call your primary doctor in 1-2 days and schedule an appointment IF YOU DO NOT HAVE A PRIMARY DOCTOR YOU CAN CALL OUR PHYSICIAN REFERRAL HOTLINE AT IF YOU CAN NOT AFFORD TO SEE A PHYSICIAN YOU CAN CHOSE FROM THE FOLLOWING [facility] [address] [facility] [address] [facility] [address] [facility] [address] [facility] [address] [facility] [facility]. [address]. Call 911 or go to the nearest emergency room if experiencing loss of consciousness, dizziness, chest pain, shortness of breath, vomiting/abdominal pain, speech difficulties, motor weakness or any unusual symptoms. 3.ALCOHOL CESSATION 4. REPEAT ENDOSCOPY IN 8 WEEKS RECOMMENDED BY YOUR PREVENTIVE MEDICINE SPECIALIST.FOLLOW UP WITH 'S OFFICE BY WEDNESDAY TO GET GD BIOPSY RESULT Chino Torres MD Specialty Gastroenterology Comments Office Address [address] [place] [address] Office JASPER MENSAH NP Mar 01, 2019 10:07
--- NOTE | 2019-03-01 10:21 | DS ---
Date/Time of Note Date/Time of Note DATE: 03/01/19 TIME: 10:20 Discharge Summary Admission/Discharge Info Admit Date/Time Feb 27, 2019 at 03:01 Discharge Date/Time Discharge Diagnosis SUBJECTIVE: No further tremors. No nausea or vomiting or diarrhea. No further bleeding signs. Currently sleeping. Tolerating diet. OBJECTIVE: Vital signs-see below PHYSICAL EXAM: EtOH induced gastritis/duodenitis. Alcohol withdrawal syndrome Alcoholic liver cirrhosis Homelessness Patient Condition: Stable Consults Procedures EGD on 02/27/2019:Grade D esophagitis,Erosive antral gastropathy and Duodenitis. Hospital Course 43-year-old male with alcoholism, liver failure, homelessness, transferred from [facility] where he was brought by paramedics with nausea and multiple episodes of vomiting which then became somewhat blood-tinged with abdominal pain.... Patient's hemoglobin remained stable. He did require any blood transfusion. There was no hematemesis while patient was admitted in the hospital. He underwent EGD on 02/27/2019 showed Grade D esophagitis,Erosive antral gastropathy and Duodenitis. Patient was able to tolerate diet and activities. He was also treated for alcohol withdrawal with thiamine by, tapered dose of Librium. Patient was counseled on alcohol cessation. He was also seen by social service assistant. At this time, patient remains hemodynamically stable. There is no DTs or signs of encephalopathy. Patient is eager to be discharged to his mother's house. Patient to follow-up with training and development head office for EGD biopsy results. Hospitalization was also noted for SIRS which is thought to be reactive with EtOH intoxication and acute kidney injury. This was resolved. Approximately 60-minute was spent on coordinating the discharge on this patient. Patient was seen in collaboration with Dr. Dewitt. Home Meds Active Scripts Pantoprazole* (Pantoprazole*) 40 Mg Tablet., 40 MG PO BID@, #100 TAB Prov:JASPER MENSAH NP 03/01/19 Folic Acid* (Folic Acid*) 0.8 Mg Tablet, 0.8 MG PO DAILY, #30 TAB Prov:JASPER MENSAH NP 03/01/19 Thiamine* (Thiamine*) 50 Mg Tablet, 100 MG PO DAILY, #60 TAB Prov:JASPER MENSAH NP 03/01/19 Follow-up Plan 1.YOU HAVE RECEIVED A MEDICAL TREATMENT AT [facility] AND YOUR CONDITION IS STABLE AND CAN BE FOLLOWED UP OUTPATIENT. FURTHER FOLLOW-UPS CAN WAIT UNTIL YOU ARE SEEN IN YOUR DOCTORS OFFICE WITHIN THE NEXT 1-2 DAYS. IT IS YOUR RESPONSIBILITY TO MAKE AN APPOINTMENT FOR FOLOW-UP CARE. IF YOU HAVE A PRIMARY DOCTOR --you should call your primary doctor in 1-2 days and schedule an appointment IF YOU DO NOT HAVE A PRIMARY DOCTOR YOU CAN CALL OUR PHYSICIAN REFERRAL HOTLINE AT IF YOU CAN NOT AFFORD TO SEE A PHYSICIAN YOU CAN CHOSE FROM THE FOLLOWING [facility] [address] [facility] [address] [facility] [facility] [address] [facility] [address] [facility] [address] [facility] [facility]. [address] 2. Call 911 or go to the nearest emergency room if experiencing loss of consciousness, dizziness, chest pain, shortness of breath, vomiting/abdominal pain, speech difficulties, motor weakness or any unusual symptoms. 3.ALCOHOL CESSATION 4. REPEAT ENDOSCOPY IN 8 WEEKS RECOMMENDED BY YOUR POOL MANAGER.FOLLOW UP WITH 'S OFFICE BY WEDNESDAY TO GET GD BIOPSY RESULT Chino Torres MD Specialty Gastroenterology Comments Office Address [id number] [address] Office Primary Care Provider [facility] Pending Labs Laboratory Tests Test 03/01/19 06:02 White Blood Count 7.0 10^3/ul (4.8-10.8) Red Blood Count 3.36 10^6/ul (4.70-6.10) Hemoglobin 10.9 g/dl (14.0-18.0) Hematocrit 30.7 % (42.0-52.0) Mean Corpuscular Volume 91.4 fl (82.0-101.0) Mean Corpuscular Hemoglobin 32.4 pg (29.0-33.0) Mean Corpuscular Hemoglobin Concent 35.5 g/dl (32.0-37.0) Red Cell Distribution Width 11.9 % (11.5-14.5) Platelet Count 151 10^3/UL (140-415) Mean Platelet Volume 11.4 fl (7.4-10.4) Immature Granulocytes % 0.400 % (0.001-0.429) Neutrophils % 70.5 % (39.0-77.0) Lymphocytes % 20.0 % (15.0-51.0) Monocytes % 6.8 % (0.0-11.0) Eosinophils % 2.0 % (0.0-7.0) Basophils % 0.3 % (0.0-2.0) Nucleated Red Blood Cells % 0.0 /100WBC (0.0-0.0) Immature Granulocytes # 0.030 10^3/ul (0.0-0.031) Neutrophils # 5.0 10^3/ul (1.6-7.5) Lymphocytes # 1.4 10^3/ul (0.8-2.9) Monocytes # 0.5 10^3/ul (0.3-0.9) Eosinophils # 0.1 10^3/ul (0.0-0.5) Basophils # 0.0 10^3/ul (0.0-0.1) Nucleated Red Blood Cells # 0.0 10^3/ul (0.0-0.0) JASPER MENSAH NP Mar 01, 2019 10:21
[2019-03-01 11:40] VITALS: BP 124/70; PULSE 85; RESP 18
== END 2019-03-01 15:20 | disposition home or self-care (01) | DRG 392 ==
LOC: TEL 03:01
PROVIDERS: ADMIT Internal Medicine; ATTEND Internal Medicine
PROC: 0DB68ZX Excision of Stomach, Via Natural or Artificial Opening Endoscopic, Diagnostic (ICD-10-PCS; principal; 2019-02-27 15:00)
DX: K29.20 Alcoholic gastritis without bleeding (principal); F10.239 Alcohol dependence with withdrawal, unspecified; N17.9 Acute kidney failure, unspecified; R65.10 Systemic inflammatory response syndrome (SIRS) of non-infectious origin without acute organ dysfunction; K70.30 Alcoholic cirrhosis of liver without ascites; F20.9 Schizophrenia, unspecified; Z59.0 Homelessness; I10 Essential (primary) hypertension; D64.9 Anemia, unspecified; J38.5 Laryngeal spasm; K20.9 Esophagitis, unspecified; K70.40 Alcoholic hepatic failure without coma; K29.80 Duodenitis without bleeding; Z87.891 Personal history of nicotine dependence
CPT/HCPCS: 80053; 80061; 81001; 83036; 83735; 84100; 85025; 85610; 87086; 88305; 88312; C9113; J3411; J3475; J7030